=== PATIENT | female | born 1960 | race Caucasian/White ===

== ENCOUNTER → 2016-04-14 | Outpatient (CLI) | payer BC | END | disposition home or self-care (01) | LOC: LABPAT 12:55 | PROVIDERS: ATTEND Obstetrics & Gynecology | DX: Z01.810 Encounter for preprocedural cardiovascular examination (principal) | CPT/HCPCS: 86850; 86900; 86901; 93005 ==

== ENCOUNTER → 2016-04-15 | Outpatient (CLI) | payer BC | END | disposition home or self-care (01) | LOC: LABWHC1 09:52 | PROVIDERS: ATTEND Obstetrics & Gynecology | DX: N80.1 Endometriosis of ovary (principal); N83.202 Unspecified ovarian cyst, left side; Z12.73 Encounter for screening for malignant neoplasm of ovary | CPT/HCPCS: 36415; 86304 ==

== ENCOUNTER 2016-04-17 06:20 | Day surgery (SDC) | payer BC ==
[2016-04-12 10:47] VITALS: BMI 19.9
[~2016-04-17 06:20] MED LIST: DEXAMETHASONE SOD PHOSPHATE 10 MG/ML 1 ML VIAL IV ONE; LIDOCAINE 1% 20 ML VIAL (10MG/ML) FOR IV START INTRADERMA PRN; ONDANSETRON 4 MG/2 ML VIAL IVP ONE; Pre Op ABX Message 1 EACH MISC MISCELLANE ONE; SCOPOLAMINE 1.5MG/72HR PATCH TRANSDERM ONE; fentaNYL (PF) 50 MCG/ML 2 ML AMP IV PRN
--- NOTE | 2016-04-17 06:55 | P.HPOB ---
History of Present Illness H&P Date: 04/17/16 Chief Complaint: ovarian cysts 56 year old presents for bilateral salpingo oopherectomy using da nayan. She has had a painful endometrioma on her ovary. Review of Systems All systems: negative Constitutional: Denies chills, Denies fever Eyes: denies blurred vision, denies pain Ears, nose, mouth and throat: Denies headache, Denies sore throat Cardiovascular: Denies chest pain, Denies shortness of breath Respiratory: Denies cough Gastrointestinal: Denies abdominal pain, Denies diarrhea, Denies nausea, Denies vomiting Genitourinary: Denies dysuria, Denies hematuria Musculoskeletal: Denies myalgias Integumentary: Denies pruritus, Denies rash Neurological: Denies numbness, Denies weakness Psychiatric: Denies anxiety, Denies depression Endocrine: Denies fatigue, Denies weight change Past Medical History Past Medical History: Skin Disorder, Thyroid Disorder Additional Past Medical History / Comment(s): IBS and eczema History of Any Multi-Drug Resistant Organisms: None Reported Past Surgical History: Hysterectomy Past Anesthesia/Blood Transfusion Reactions: No Reported Reaction Past Psychological History: Anxiety, Panic Disorder Smoking Status: Former smoker Past Alcohol Use History: Daily Past Drug Use History: None Reported - Past Family History Mother Family Medical History: Cancer Additional Family Medical History / Comment(s): melanoma Medications and Allergies Home Medications Medication Instructions Recorded Confirmed Type Betamethasone Dipropionate 1 applic TOPICAL BID 04/12/16 04/17/16 History [Diprolene 0.05% Lotion] L.acidoph,Paracasei, B.lactis 1 each PO DAILY 04/12/16 04/17/16 History [Probiotic] Levothyroxine Sodium [Synthroid] 75 mcg PO DAILY 04/12/16 04/17/16 History Sertraline [Zoloft] 50 mg PO DAILY 04/12/16 04/12/16 History Varenicline Tartrate [Chantix] 1 mg PO DAILY 04/12/16 04/17/16 History Allergies Allergy/AdvReac Type Severity Reaction Status Date / Time Sulfa (Sulfonamide Allergy Itching Verified 04/12/16 10:31 Antibiotics) morphine AdvReac Nausea & Verified 04/12/16 10:31 Vomiting Exam Osteopathic Statement: *. No significant issues noted on an osteopathic structural exam other than those noted in the History and Physical/Consult. Heart: RRR Lungs: CTAB ABdomen: soft, nontender Extremeties: neg shree's Assessment and Plan (1) Endometrioma of ovary Status: Acute Plan: 1. laparoscopic BSO using da nayan
[2016-04-17 07:00] VITALS: RESP 16
[2016-04-17] MEDS: LACTATED RINGERS 1,000 ML IV SCH (07:00)
[2016-04-17] MEDS ORDERED: ONDANSETRON 4 MG/2 ML VIAL IVP ONE (07:05)
[2016-04-17] MEDS ORDERED: DEXAMETHASONE SOD PHOSPHATE 10 MG/ML 1 ML VIAL IV ONE (07:05)
[2016-04-17] MEDS ORDERED: BUPIVACAINE (PF) 0.25% 30 ML VIAL SQ ONE ×3 (07:27→08:50)
[2016-04-17] MEDS ORDERED: NEOSTIGMINE 1 MG/ML 10 ML VIAL ONE (07:41)
[2016-04-17] MEDS ORDERED: SUCCINYLCHOLINE CHLORIDE 100 MG/5 ML SYR IV ONE (07:41)
[2016-04-17] MEDS ORDERED: MIDAZOLAM 2 MG/2 ML VIAL ONE (07:41)
[2016-04-17] MEDS ORDERED: KETOROLAC 30 MG/ML 1 ML VIAL ONE (07:41)
[2016-04-17] MEDS ORDERED: LIDOCAINE 1% INJ 10MG/ML (20 ML MDV) ONE (07:41)
[2016-04-17] MEDS ORDERED: PROPOFOL 10 MG/ML 20 ML VIAL IV ONE (07:41)
[2016-04-17] MEDS ORDERED: GLYCOPYRROLATE 0.2 MG/ML 2 ML VIAL ONE (07:41)
[2016-04-17] MEDS ORDERED: fentaNYL (PF) 50 MCG/ML 2 ML AMP ONE (07:41)
[2016-04-17] MEDS ORDERED: ROCURONIUM BROMIDE 10 MG/ML 10 ML VIAL IV ONE (07:41)
[2016-04-17 09:17] VITALS: TEMP 97.2
[2016-04-17] MEDS ORDERED: HYDROmorphone 1 MG/ML 1 ML SYRINGE IVP ONE ×2 (09:24→09:45)
[2016-04-17] MEDS ORDERED: IBUPROFEN 200 MG TAB PO ONE (10:38)
[2016-04-17 10:42] VITALS: BP 112/58; PULSE 82
--- NOTE | 2016-04-17 18:31 | P.OP ---
Date of Procedure: 04/17/16 Preoperative Diagnosis: 1. Ovarian cyst, suspect endometrioma Postoperative Diagnosis: 1. Enlarged left ovary Procedure(s) Performed: Laparoscopic bilateral salpingo-oophorectomy was da Lakesha robot Anesthesia: CLEMENTE Surgeon: Mallorie Perdomo Estimated Blood Loss (ml): 5 Pathology: other (Bilateral tubes and ovaries) Condition: stable Disposition: PACU Operative Findings: Normal appearing right ovary, enlarged firm left ovary with no excrescences or cysts seen Description of Procedure: Patient taken the operating room where general anesthesia was obtained without difficulty. She is prepped and draped in normal sterile fashion dorsal lithotomy position, legs placed in the Rey stirrups. Tomlinson catheter was also placed. Attention was then turned to the abdomen and gloves were changed. A 5 mm supraumbilical incision was made the scalpel and a 5 mm optical trocar was placed under direct visualization. 10 cm to the right of this and 2 cm down a 5 mm incision was made and 8 mm da Lakesha port was placed under direct visualization. Same measurements on the opposite side of the patient's abdomen , the 5 mm incision was made and 8 mm da Lakesha port was placed under direct visualization. In the left upper quadrant a 10 mm incision was made and a 10 mm optical trocar was placed under direct visualization. The 5 mm optical trocar was then replaced with the 8 mm da Lakesha camera port. The robot was docked on patient's right side. The camera was introduced and then the monopolar curved scissor and [place] bipolar placed under direct visualization. I broke scrub and went to the physician console. There were adhesions of the omentum to the anterior abdominal wall along the bladder flap. These were taken down using the [place] bipolar and cut with the monopolar curved scissors. Survey of the pelvis revealed a normal-appearing right ovary and fallopian tube but the left ovary appeared enlarged. The left infundibulopelvic pelvic ligament was cauterized with the [place] bipolar and cut with monopolar curved scissors. The right infundibulopelvic ligament was cauterized with the [place] bipolar and cut with monopolar curved scissors. A 5 mm Endo Catch bag was introduced through the assistant vice president port. Both ovaries and tubes were placed in the bag and pulled out the 10 mm incision. This incision had to be extended in order to remove the ovary and part of the ovary had come out in pieces. All instruments removed from the abdomen. The 10 mm incision I had to be extended was closed first with 0 Vicryl and the fascial layer and then 4-0 Vicryl subcuticular fashion. The rest of the abdominal incisions were closed with 4-0 Vicryl in a subcuticular fashion. Patient tolerated the procedure well, sponge and instrument counts correct 2 and she was taken to recovery room in stable condition condition
== END 2016-04-17 11:09 | disposition home or self-care (01) ==
LOC: OR 06:20
PROVIDERS: ATTEND Obstetrics & Gynecology
DX: D27.9 Benign neoplasm of unspecified ovary (principal); N83.202 Unspecified ovarian cyst, left side; N83.201 Unspecified ovarian cyst, right side; N83.8 Other noninflammatory disorders of ovary, fallopian tube and broad ligament; K66.0 Peritoneal adhesions (postprocedural) (postinfection); E07.9 Disorder of thyroid, unspecified; K58.9 Irritable bowel syndrome, unspecified; L30.9 Dermatitis, unspecified; F41.9 Anxiety disorder, unspecified; F41.0 Panic disorder [episodic paroxysmal anxiety]; Z87.891 Personal history of nicotine dependence; Z79.899 Other long term (current) drug therapy; Z88.5 Allergy status to narcotic agent; Z88.2 Allergy status to sulfonamides
CPT/HCPCS: 58661; 88307; J2250; J1100; J2710; J2405; J2001; J3010; J1885; J1170; J0330; J2704; 86850; 86900; 86901

== ENCOUNTER → 2016-06-20 | Outpatient (CLI) | payer BC ==
--- NOTE | 2016-06-20 13:12 | XR ---
EXAMINATION TYPE: XR knee complete bilateral DATE OF EXAM: 06/20/2016 12:53 PM CLINICAL HISTORY: pain TECHNIQUE: Three views of the left knee are obtained. COMPARISON: None. FINDINGS: There is no acute fracture/dislocation. The tri-compartment joint spaces appear within no rmal limits. The overlying soft tissue appears unremarkable. IMPRESSION: There is no acute fracture or dislocation ICD 10 NO FRACTURE, INITIAL EVALUATION EXAMINATION TYPE: XR knee complete bilateral DATE OF EXAM: 06/20/2016 12:53 PM CLINICAL HISTORY: pain TECHNIQUE: Three views of the right knee are obtained. COMPARISON: None. FINDINGS: There is no acute fracture/dislocation. The tri-compartment joint spaces appear within no rmal limits. The overlying soft tissue appears unremarkable. IMPRESSION: There is no acute fracture or dislocation.ICD 10 NO FRACTURE, INITIAL EVALUATION
== END ==
LOC: RADXRMAIN 12:33
PROVIDERS: ATTEND Physician Assistant
DX: M17.0 Bilateral primary osteoarthritis of knee (principal)

== ENCOUNTER → 2016-06-27 | Outpatient (CLI) | payer BC ==
--- NOTE | 2016-06-28 07:49 | MM ---
Reason for exam: screening (asymptomatic). Last mammogram was performed 2 years and 1 month ago. History: Patient is nulliparous. Took estrogen for 1 year. Physical Findings: A clinical breast exam by your physician is recommended on an annual basis and results should be correlated with mammographic findings. MG Screening Mammo w CAD Bilateral CC and MLO view(s) were taken. Prior study comparison: June 11, 2014, bilateral MG screening mammo w CAD. January 27, 2009, mammogram, performed at [facility]. The breast tissue is heterogeneously dense. This may lower the sensitivity of mammography. Focal asymmetry in the upper left MLO view. This finding is changed when compared with previous exams. ASSESSMENT: Incomplete: need additional imaging evaluation, BI-RAD 0 RECOMMENDATION: Special view mammogram of the left breast. [facility] will attempt to contact patient to return for supplemental views.
== END | disposition home or self-care (01) ==
LOC: RADMAMWWP 11:15
PROVIDERS: ATTEND Family Medicine
DX: Z12.31 Encounter for screening mammogram for malignant neoplasm of breast (principal)

== ENCOUNTER → 2016-06-30 | Outpatient (CLI) | payer BC ==
--- NOTE | 2016-06-30 11:05 | MM ---
Reason for exam: additional evaluation requested from abnormal screening. Last mammogram was performed less than 1 month ago. History: Patient is postmenopausal and is nulliparous. Took estrogen for 12 years beginning at age 34. Physical Findings: Nurse did not find any significant physical abnormalities on exam. MG Work Up Mamm w CAD LT Spot compression CC, spot compression MLO, and LM view(s) were taken of the left breast. Prior study comparison: June 27, 2016, bilateral MG screening mammo w CAD. June 11, 2014, bilateral MG screening mammo w CAD. The questioned central asymmetry on the left MLO view does not clearly persists on additional views. A precautionary 6 month follow up is recommended. These results were verbally communicated with the patient and result sheet given to the patient on 06/30/16. ASSESSMENT: Probably benign, BI-RAD 3 RECOMMENDATION: Follow-up diagnostic mammogram of the left breast in 6 months.
== END | disposition home or self-care (01) ==
LOC: RADMAMWWP 10:17
PROVIDERS: ATTEND Family Medicine
DX: R92.8 Other abnormal and inconclusive findings on diagnostic imaging of breast (principal)

== ENCOUNTER → 2017-03-30 | Outpatient (CLI) | payer BC ==
--- NOTE | 2017-03-30 11:41 | MM ---
Reason for exam: follow-up at short interval from prior study. Last mammogram was performed 9 months ago. History: Patient is postmenopausal and is nulliparous. Took estrogen for 12 years beginning at age 34. Physical Findings: Nurse did not find any significant physical abnormalities on exam. MG 3D Diag Mammo W/Cad LT CC and MLO view(s) were taken of the left breast. Prior study comparison: June 30, 2016, left breast MG work up mamm w CAD LT. June 11, 2014, bilateral MG screening mammo w CAD. There are scattered fibroglandular densities. There is no discrete abnormality. These results were verbally communicated with the patient and result sheet given to the patient on 03/30/17. ASSESSMENT: Negative, BI-RAD 1 RECOMMENDATION: Return to routine screening mammogram schedule for both breasts. Back on schedule, June 2017.
== END | disposition home or self-care (01) ==
LOC: RADMAMWWP 10:43
PROVIDERS: ATTEND Family Medicine
DX: R92.8 Other abnormal and inconclusive findings on diagnostic imaging of breast (principal)
CPT/HCPCS: 77065; G0279

== ENCOUNTER → 2017-08-02 | Outpatient (CLI) | payer BC ==
--- NOTE | 2017-08-02 15:00 | CT ---
EXAMINATION TYPE: CT abdomen pelvis w con DATE OF EXAM: 08/02/2017 COMPARISON: NONE HISTORY: Irritable bowel syndrome with diarrhea CT DLP: 684 mGycm CONTRAST: CT scan of the abdomen and pelvis is performed with Oral Contrast and with IV Contrast, patient injec georgina with 100 ml mL of Isovue 300. FINDINGS: LUNG BASES-: No visible nodule. No infiltrate. LIVER/GB: No calcified gallstones. Subcentimeter hypoattenuating lesion anterior segment right hepa tic lobe could reflect a small cyst or hemangioma. Consider ultrasound correlation. No additional hep atic lesions seen at this time. Biliary tree is of normal caliber. PANCREAS: No inflammation. No distinct mass. SPLEEN: No splenic enlargement. No lesion seen. ADRENALS: No nodule. No thickening. KIDNEYS/BLADDER: No hydronephrosis. No nephrolithiasis. No distinct renal mass. Urinary bladder g rossly unremarkable. BOWEL: Normal appendix. Normal bowel caliber. No inflammation. Wall thickening of the ascending col on could reflect colitis nonspecific type. Correlate clinically and consider direct visualization if felt to be indicated. Remainder of the colon appears to be of normal caliber. GENITAL ORGANS: No gross abnormality. LYMPH NODES: No greater than 1cm abdominal or pelvic lymph nodes are appreciated. AORTA: No significant abnormality. OSSEOUS STRUCTURES: No significant abnormality is seen. OTHER: No significant additional abnormality is seen. IMPRESSION: 1. Hepatic cyst versus a small hemangioma. Consider ultrasound correlation. 2.Wall thickening of the ascending colon could reflect colitis nonspecific type. Correlate clinically and consider direct visualization if felt to be indicated.
== END | disposition home or self-care (01) ==
LOC: RADCTMAIN 12:29
PROVIDERS: ATTEND Family Medicine
DX: K63.89 Other specified diseases of intestine (principal); R10.817 Generalized abdominal tenderness
CPT/HCPCS: 74177; Q9967

== ENCOUNTER → 2018-08-06 | Outpatient (CLI) | payer BC ==
--- NOTE | 2018-08-06 14:47 | BD ---
EXAMINATION TYPE: Axial Bone Density DATE OF EXAM: 08/06/2018 COMPARISON: NONE CLINICAL HISTORY: Disorder of bone. Osteoporosis screening. Height: 60 Weight: 97.1 FRAX RISK QUESTIONS: Alcohol (3 or more units per day): no Family History (Parent hip fracture): no Glucocorticoids (More than 3mos): no (Ex: prednisone, prednisolone, methylprednisolone, dexamethasone, and hydrocortisone). History of Fracture in Adulthood: no Secondary Osteoporosis: 1. Type 1 Diabetes: no 2. Hyperthyroidism: no 3. Menopause before 45: yes 4. Malnutrition: no 5. Chronic liver disease: no Rheumatoid Arthritis: no Current Tobacco Use: yes RISK FACTORS HISTORY OF: Family History of Osteoporosis: yes Active: yes Diet low in dairy products/other sources of calcium: no Postmenopausal woman: age 36 complete hysterectomy Lost more than 2 inches in height since high school: no MEDICATIONS: celebrex, lipitor, bentyl Thyroid Medications: synthroid How Lon years Additional History: EXAM MEASUREMENTS: Bone mineral densitometry was performed using the Varioptic System. Bone mineral density as measured about the Lumbar spine is: ----- L1-L4(G/cm2): 1.544 T Score Values are as follows: ----- L2: 2.9 ----- L3: 3.3 ----- L4: 3.7 ----- L1-L4: 3.0 Bone mineral density :baseline Bone mineral density about the R hip (g/cm2): 0.908 Bone mineral density about the L hip (g/cm2): 0.903 T Score values are as follows: -----R Neck: -0.9 -----L Neck: -1.0 -----R Total: -0.3 -----L Total: 0.3 Bone mineral density : baseline IMPRESSION: Normal (Values between +1 and -1 indicate normal bone mass). Values approach osteopenia with regards the left and right femoral necks. Consider repeating this study in 5 years or sooner if there is sixto e new clinical indication. NOTE: T-SCORE=SD OF THE YOUNG ADULT MEAN.
== END | disposition home or self-care (01) ==
LOC: RADBDWWP 13:02
PROVIDERS: ATTEND Family Medicine
DX: M85.851 Other specified disorders of bone density and structure, right thigh (principal); M85.852 Other specified disorders of bone density and structure, left thigh
CPT/HCPCS: 77080

== ENCOUNTER → 2019-05-07 | Outpatient (CLI) | payer BC ==
--- NOTE | 2019-05-08 14:58 | MM ---
Reason for exam: screening (asymptomatic). Last mammogram was performed 2 years and 1 month ago. History: Patient is postmenopausal and is nulliparous. Took estrogen for 12 years beginning at age 34. Physical Findings: A clinical breast exam by your physician is recommended on an annual basis and results should be correlated with mammographic findings. MG Screening Mammo w CAD Bilateral CC and MLO view(s) were taken. Prior study comparison: March 30, 2017, left breast MG 3d diag mammo w/cad LT. June 30, 2016, left breast MG work up mamm w CAD LT. No significant changes when compared with prior studies. ASSESSMENT: Benign, BI-RAD 2 RECOMMENDATION: Routine screening mammogram of both breasts in 1 year.
== END | disposition home or self-care (01) ==
LOC: RADMAMWWP 11:41
PROVIDERS: ATTEND Family Medicine
DX: Z12.31 Encounter for screening mammogram for malignant neoplasm of breast (principal)
CPT/HCPCS: 77067

== ENCOUNTER → 2020-05-21 | Outpatient (CLI) | payer BC ==
--- NOTE | 2020-05-21 10:00 | XR ---
EXAMINATION TYPE: XR abdomen 2V DATE OF EXAM: 05/21/2020 CLINICAL HISTORY: Left lower quadrant pain. Irritable bowel syndrome. Constipation. TECHNIQUE: Supine, upright, and left side down lateral decubitus views of the abdomen are obtained. COMPARISON: CT abdomen and pelvis August 02, 2017. FINDINGS: Gas is seen in nondistended stomach. Scattered gas is seen in non-distended small bowel lo ops. Gas and fecal material is seen in non-distended colon. There is dextroconvex scoliosis centere d at L1 level. Lung bases are clear. No suspicious calcifications. Focal moderate to severe disc spac e narrowing and spurring right L4-L5 level. IMPRESSION: Overall nonobstructive bowel gas pattern.
== END | disposition home or self-care (01) ==
LOC: RADXRYALE 09:28
PROVIDERS: ATTEND Physician Assistant Medical
DX: K58.0 Irritable bowel syndrome with diarrhea (principal); K59.00 Constipation, unspecified
CPT/HCPCS: 74019

== ENCOUNTER → 2020-07-30 | Outpatient (CLI) | payer BC ==
--- NOTE | 2020-07-30 14:31 | XR ---
EXAMINATION TYPE: XR knee complete LT DATE OF EXAM: 07/30/2020 CLINICAL HISTORY: pain TECHNIQUE: Three views of the left knee are obtained. COMPARISON: None. FINDINGS: There is no acute fracture/dislocation. The tri-compartment joint spaces appear within no rmal limits. The overlying soft tissue appears unremarkable. IMPRESSION: There is no acute fracture or dislocation ICD 10 NO FRACTURE, INITIAL EVALUATION
== END | disposition home or self-care (01) ==
LOC: RADXRYALE 14:05
PROVIDERS: ATTEND Physician Assistant Medical
DX: M25.562 Pain in left knee (principal)

== ENCOUNTER → 2020-10-07 | Outpatient (CLI) | payer BC ==
--- NOTE | 2020-10-11 08:59 | MM ---
Reason for exam: screening (asymptomatic). Last mammogram was performed 1 year and 5 months ago. History: Patient is postmenopausal, history of other cancer, and is nulliparous. Took hormonal contraceptives for 12 years. Took estrogen for 12 years beginning at age 34. Physical Findings: A clinical breast exam by your physician is recommended on an annual basis and results should be correlated with mammographic findings. MG Screening Mammo w CAD Bilateral CC and MLO view(s) were taken. Prior study comparison: May 07, 2019, bilateral MG screening mammo w CAD. March 30, 2017, left breast MG 3d diag mammo w/cad LT. June 27, 2016, bilateral MG screening mammo w CAD. The breast tissue is heterogeneously dense. This may lower the sensitivity of mammography. Multiple scattered asymmetric denisties are unchanged when comparing to various priors exams. No significant changes when compared with prior studies. ASSESSMENT: Benign, BI-RAD 2 RECOMMENDATION: Routine screening mammogram of both breasts in 1 year. Patient should continue monthly self breast exams. A negative report should not preclude additional follow up of suspicious palpable abnormalities.
== END | disposition home or self-care (01) ==
LOC: RADMAMWWP 16:33
PROVIDERS: ATTEND Family Medicine
DX: Z12.31 Encounter for screening mammogram for malignant neoplasm of breast (principal); Z78.0 Asymptomatic menopausal state; Z85.9 Personal history of malignant neoplasm, unspecified; Z79.3 Long term (current) use of hormonal contraceptives
CPT/HCPCS: 77067

== ENCOUNTER → 2020-10-29 | Outpatient (CLI) | payer BC ==
--- NOTE | 2020-10-29 12:34 | XR ---
EXAMINATION TYPE: XR lumbosacral spine min 4V DATE OF EXAM: 10/29/2020 CLINICAL HISTORY: Chronic increasing back pain. TECHNIQUE: Frontal, lateral, and oblique images of the lumbar spine are obtained. COMPARISON: None FINDINGS: There are 5 lumbar type vertebral bodies identified. There is dextroconvex scoliosis cente red at L1-L2 level. Spine is straightened and alignment on lateral images. [id number]-[id number] disc sp yoli narrowing with vacuum disc phenomenon at L4-L5 level and moderate anterior spurring. Mild to mode rate disc space narrowing L1-L2 and L2-L3 levels, matter shows mild to moderate anterior spurring. Ve rtebral body heights are maintained. Additional mild to moderate multilevel anterior and lateral spur ring is present. Oblique images appear within normal limits. Overlying soft tissue is unremarkable. IMPRESSION: As above.
--- NOTE | 2020-10-31 10:31 | XR ---
EXAMINATION TYPE: XR Hip Bilateral Complete DATE OF EXAM: 10/29/2020 CLINICAL HISTORY: pain TECHNIQUE: AP and frogleg views of the bilateral hips are obtained. COMPARISON: None. FINDINGS: There is no acute fracture/dislocation evident. The joint space appears mildly narrowed. . The overlying soft tissue appears unremarkable. IMPRESSION: 1. There is no acute fracture or dislocation. ICD 10 NO FRACTURE, INITIAL EVALUATION
== END | disposition home or self-care (01) ==
LOC: RADXRYALE 11:43
PROVIDERS: ATTEND Physician Assistant Medical
DX: M51.36 Other intervertebral disc degeneration, lumbar region (principal); M41.86 Other forms of scoliosis, lumbar region; M25.851 Other specified joint disorders, right hip; M25.852 Other specified joint disorders, left hip
CPT/HCPCS: 72110; 73521

== ENCOUNTER → 2021-06-07 | Outpatient (CLI) | payer BC ==
--- NOTE | 2021-06-07 16:14 | MR ---
EXAMINATION TYPE: MR brain wo/w con DATE OF EXAM: 06/07/2021 COMPARISON: None HISTORY: Amnesia, family hx of mental illness. CONTRAST: Performed utilizing 4.5 mL intravenous Gadavist gadolinium contrast. TECHNIQUE: Multiplanar, multiecho imaging on a 3.0 Destiny magnet is performed through the brain. Stud y is performed within 24 hours of arrival to the hospital. The craniovertebral junction is normal. The pituitary is normal. Diffusion-weighted imaging is performed. No abnormal hyperintensity is present to suggest an acute i ntracranial infarct or acute ischemic change. There is a nonspecific white matter changes within the left centrum semiovale not portion patient's a ge. This is nonspecific. Consider microvascular ischemic change. This measures 0.3 cm in thickness. T here are a few additional punctate areas of hyperintensity within the right frontal lobe white matter , left frontal lobe white matter and within the right centrum semiovale. White matter ischemic change s could be considered. Differential diagnosis could include migraine headaches, vasculitis, multiple sclerosis. Ventricles and sulci are appropriate for the patient age. Normal vascular flow voids appear present. Orbits as visualized appear normal.. No abnormal enhanceme nt is evident. IMPRESSIONS: 1. Scattered punctate white matter changes discussed above are nonspecific. Chronic white matter isch emic change is likely within the differential. Differential diagnosis is discussed above. 2. No additional suspicious abnormalities.
== END | disposition home or self-care (01) ==
LOC: RADMRIMAIN 12:15
PROVIDERS: ATTEND Physician Assistant
DX: R41.3 Other amnesia (principal); Z81.8 Family history of other mental and behavioral disorders
CPT/HCPCS: 70553; A9585

== ENCOUNTER → 2021-12-28 | Outpatient (CLI) | payer BC ==
--- NOTE | 2021-12-29 08:20 | MM ---
Reason for Exam: Screening (asymptomatic). Last mammogram was performed 1 year(s) and 3 month(s) ago. Patient History: Menarche at age 15. Patient has no children. Left ovary removed at age 56. Right ovary removed at age 56. Hysterectomy at age 37. Postmenopausal. Estrogen for 12 years from age 34 until age 46. Patient used Hormonal Contraceptives for 12 years. Risk Values: Ro 5 year model risk: 1.5%. NCI Lifetime model risk: 7.2%. Prior Study Comparison: 03/30/2017 Left Diagnostic Mammogram, [facility]. 05/07/2019 Bilateral Screening Mammogram, [facility]. 10/07/2020 Bilateral Screening Mammogram, [facility]. Tissue Density: The breast tissue is heterogeneously dense. This may lower the sensitivity of mammography. Findings: Analyzed By CAD. There is no suspicious group of microcalcifications in either breast. Asymmetry demonstrated within the outer right breast at posterior depth approximately 4.5 cm from the nipple. Overall Assessment: Incomplete: need additional imaging evaluation, BI-RAD 0 Management: Diagnostic Mammogram of the right breast. A clinical breast exam by your physician is recommended on an annual basis and results should be correlated with mammographic findings. [facility] will attempt to contact patient to return for supplemental views and ultrasound if indicated. Electronically signed and approved by: Dago Sweeney D.O.
== END | disposition home or self-care (01) ==
LOC: RADMAMWWP 11:43
PROVIDERS: ATTEND Family Medicine
DX: Z12.31 Encounter for screening mammogram for malignant neoplasm of breast (principal); Z78.0 Asymptomatic menopausal state
CPT/HCPCS: 77067

== ENCOUNTER → 2021-12-30 | Outpatient (CLI) | payer BC ==
--- NOTE | 2021-12-30 10:35 | MM ---
Reason for Exam: Additional evaluation requested from abnormal screening. Last screening mammogram was performed less than 1 month ago. Patient History: Menarche at age 15. Patient has no children. Left ovary removed at age 56. Right ovary removed at age 56. Hysterectomy at age 37. Postmenopausal. Estrogen for 12 years from age 34 until age 46. Patient used Hormonal Contraceptives for 12 years. Risk Values: Ro 5 year model risk: 1.5%. NCI Lifetime model risk: 7.2%. Prior Study Comparison: 05/07/2019 Bilateral Screening Mammogram, [facility]. 10/07/2020 Bilateral Screening Mammogram, [facility]. 12/28/2021 Bilateral MG screening mammo w CAD, [facility]. Tissue Density: Right: The breast tissue is heterogeneously dense. This may lower the sensitivity of mammography. Findings: Analyzed By CAD. No evidence of suspicious mass, calcification or distortion. The asymmetry is seen on prior on 12/29/2021 is felt to be present on imaging dating back to 05/07/2019. Overall Assessment: Benign, BI-RAD 2 Management: Screening Mammogram of both breasts in 1 year. A clinical breast exam by your physician is recommended on an annual basis and results should be correlated with mammographic findings. This exam should not preclude additional follow-up of suspicious palpable abnormalities. Results were given to the patient verbally at the time of exam. Electronically signed and approved by: Marko Kan DO
== END | disposition home or self-care (01) ==
LOC: RADMAMWWP 10:01
PROVIDERS: ATTEND Family Medicine
DX: R92.8 Other abnormal and inconclusive findings on diagnostic imaging of breast (principal); Z78.0 Asymptomatic menopausal state
CPT/HCPCS: 77065

== ENCOUNTER → 2022-10-31 | Outpatient (CLI) | payer OTHER ==
--- NOTE | 2022-10-31 11:57 | XR ---
EXAMINATION TYPE: XR lumbosacral spine min 4V DATE OF EXAM: 10/31/2022 11:36 AM INDICATION: Patient age:Female; 62 years old; Reason for study: M54.0; [facility]. COMPARISON: Lumbosacral spine radiograph 10/29/2020 TECHNIQUE: Frontal, lateral , bilateral oblique and coned in L5-S1 lateral views of the spine. FINDINGS: There are 5 lumbar type vertebral bodies identified. There is dextroconvex scoliosis center ed at L1-L2 level. Grade 1 anterolisthesis of L5 and S1 without evidence of pars defects. Moderate-to -severe disc space narrowing with vacuum disc phenomenon at L1-L2 level and moderate anterior spurrin g redemonstrated. Mild to moderate disc space narrowing L1-L2 and L2-L3 levels with mild to moderate anterior spurring. Moderate disc space narrowing with endplate process of the L4-L5 and L5-S1 levels. Vertebral body heights are maintained. Overlying soft tissue is unremarkable. The sclerotic calcific ation of the aorta. IMPRESSION: 1. No acute process. 2. Increased moderate multilevel degenerative disease and facet arthropathy as described above. 3. Dextro scoliotic curvature redemonstrated. 4. Grade 1 anterolisthesis of L5 and S1 without pars defects.
== END | disposition home or self-care (01) ==
LOC: RADXRMAIN 11:11
PROVIDERS: ATTEND Family Medicine
DX: M47.817 Spondylosis without myelopathy or radiculopathy, lumbosacral region (principal); M43.17 Spondylolisthesis, lumbosacral region; M41.57 Other secondary scoliosis, lumbosacral region
CPT/HCPCS: 72110

== ENCOUNTER → 2023-02-14 | Outpatient (CLI) | payer BC ==
--- NOTE | 2023-02-18 18:05 | MM ---
Reason for Exam: Screening (asymptomatic). Last mammogram was performed 1 year(s) and 2 month(s) ago. Patient History: Menarche at age 15. Patient has no children. Left ovary removed at age 56. Right ovary removed at age 56. Hysterectomy at age 37. Postmenopausal. Estrogen for 12 years from age 34 until age 46. Patient used Hormonal Contraceptives for 12 years. Risk Values: Ro 5 year model risk: 1.5%. NCI Lifetime model risk: 7.0%. Prior Study Comparison: 10/07/2020 Bilateral Screening Mammogram, [facility]. 12/28/2021 Bilateral MG screening mammo w CAD, [facility]. 12/30/2021 Right MG work up mamm w CAD RT, [facility]. Tissue Density: The breast tissue is heterogeneously dense. This may lower the sensitivity of mammography. Findings: Analyzed By CAD. Unchanged asymmetric densities on both sides. There is no suspicious group of microcalcifications or new suspicious mass in either breast. Overall Assessment: Benign, BI-RAD 2 Management: Screening Mammogram of both breasts in 1 year. . Patient should continue monthly self-breast exams. A clinical breast exam by your physician is recommended on an annual basis. This exam should not preclude additional follow-up of suspicious palpable abnormalities. Note on Ro scores and lifetime risk: 1. A Ro score greater than 3% is considered moderate risk. If this is the case, consider specialist referral to assess eligibility for a risk reducing agent. 2. If overall lifetime risk for the development of breast cancer is 20% or higher, the patient may qualify for future screening with alternating mammogram and breast MRI. Electronically signed and approved by: Roland Werner M.D. Radiologist
== END | disposition home or self-care (01) ==
LOC: RADMAMWWP 13:23
PROVIDERS: ATTEND Family Medicine
DX: Z12.31 Encounter for screening mammogram for malignant neoplasm of breast (principal); Z78.0 Asymptomatic menopausal state; Z92.0 Personal history of contraception
CPT/HCPCS: 77063; 77067

== ENCOUNTER → 2023-04-30 | Outpatient (CLI) | payer BC ==
--- NOTE | 2023-04-30 12:08 | XR ---
EXAMINATION TYPE: XR cervical spine comp DATE OF EXAM: 04/30/2023 11:41 AM CLINICAL INDICATION:Female, 63 years old with history of M542,M5030,M5450,[id number] PAIN; COMPARISON: None. TECHNIQUE: The cervical spine was imaged in frontal, lateral, odontoid and bilateral oblique. FINDINGS: The osseous structures show normal alignment without evidence of an acute fracture. There are osteoph ytes noted throughout the cervical spine on the anterior and lateral aspects of the vertebral bodies. The intervertebral disk spaces are narrowed at multiple levels. Pedicles are intact. Soft tissues a re within normal limits. The odontoid appears intact. IMPRESSION: 1. No fracture or dislocation. 2. Moderate degenerative disc disease changes of the cervical spine.
--- NOTE | 2023-04-30 12:13 | XR ---
EXAMINATION TYPE: XR Hip Bilateral Complete DATE OF EXAM: 04/30/2023 11:41 AM CLINICAL INDICATION:Female, 63 years old with history of M542,M5030,M5450,[id number] PAIN; Y [facility] COMPARISON: 10/29/2020. TECHNIQUE: XR Hip Bilateral Complete; hip was examined in the frontal and lateral projections and a A P pelvis. FINDINGS: No evidence for acute process, joint dislocation or significant soft tissue swelling. Osteo phyte formation of the superior acetabulum of the hip. IMPRESSION: 1. No evidence for acute process. 2. Moderate hip osteoarthrosis.
--- NOTE | 2023-04-30 12:14 | XR ---
EXAMINATION TYPE: XR lumbosacral spine min 4V DATE OF EXAM: 04/30/2023 11:41 AM CLINICAL INDICATION:Female, 63 years old with history of M542,M5030,M5450,[id number] PAIN; COMPARISON: None TECHNIQUE: XR lumbosacral spine min 4V - Frontal, lateral , bilateral oblique and coned in L5-S1 late ral views of the spine. FINDINGS: No evidence of any acute osseous pathology. No evidence of loss of vertebral body height i s seen. There is normal alignment of the lumbar vertebral bodies. Scattered disc space narrowing. Mul tilevel marginal osteophyte formation throughout the visualized spine. There is facet joint arthropat hy throughout the spine. Scattered at least mild neural foraminal stenosis. IMPRESSION: 1. No acute fracture. 2. Moderate multilevel disc degeneration.
== END | disposition home or self-care (01) ==
LOC: RADXRYALE 11:13
PROVIDERS: ATTEND Family Medicine
DX: M16.0 Bilateral primary osteoarthritis of hip (principal); M50.30 Other cervical disc degeneration, unspecified cervical region; M51.36 Other intervertebral disc degeneration, lumbar region
CPT/HCPCS: 72050; 72110; 73521

== ENCOUNTER → 2024-05-08 | Outpatient (CLI) | payer BC ==
--- NOTE | 2024-05-09 07:44 | MM ---
Reason for Exam: Screening (asymptomatic). Last mammogram was performed 1 year(s) and 2 month(s) ago. Patient History: Menarche at age 15. Patient has no children. Left ovary removed at age 56. Right ovary removed at age 56. Hysterectomy at age 37. Postmenopausal. Estrogen for 12 years from age 34 until age 46. Patient used Hormonal Contraceptives for 12 years. Risk Values: Ro 5 year model risk: 1.6%. NCI Lifetime model risk: 6.6%. Prior Study Comparison: 12/28/2021 Bilateral MG screening mammo w CAD, [facility]. 12/30/2021 Right MG work up mamm w CAD RT, [facility]. 02/14/2023 Bilateral MG 3D screening mammo w/cad, [facility]. Tissue Density: The breasts are heterogeneously dense, which may obscure small masses. Findings: Analyzed By CAD. Right breast: There is no suspicious group of microcalcifications or new suspicious mass. Left breast: There is no suspicious group of microcalcifications or new suspicious mass. Overall Assessment: Negative, BI-RAD 1 Management: Screening Mammogram of both breasts in [address] [facility] will attempt to contact patient to return for supplemental views and ultrasound if indicated. Patient should continue monthly self-breast exams. A clinical breast exam by your physician is recommended on an annual basis. This exam should not preclude additional follow-up of suspicious palpable abnormalities. Note on Ro scores and lifetime risk: 1. A Ro score greater than 3% is considered moderate risk. If this is the case, consider specialist referral to assess eligibility for a risk reducing agent. 2. If overall lifetime risk for the development of breast cancer is 20% or higher, the patient may qualify for future screening with alternating mammogram and breast MRI. [facility], , 05/09/2024 7:40 AM. Electronically signed and approved by: Marko Kan DO
== END | disposition home or self-care (01) ==
LOC: RADMAMWWP 15:38
PROVIDERS: ATTEND Family Medicine
DX: Z12.31 Encounter for screening mammogram for malignant neoplasm of breast (principal); R92.333 Mammographic heterogeneous density, bilateral breasts; Z78.0 Asymptomatic menopausal state; Z92.0 Personal history of contraception
CPT/HCPCS: 77063; 77067